=== PATIENT | male | born 1995 | race Caucasian/White ===

== ENCOUNTER 2016-06-10 10:19 | Emergency (ER) | payer BC, OTHER ==
[2016-06-10 11:19] LABS: HEMOGLOBIN 14.4 gm/dl (14.0-17.5); RED BLOOD COUNT 4.89 M/UL (4.20-5.50); WHITE BLOOD COUNT 6.7 K/UL (4.5-11.0)
[2016-06-10 11:41] LABS: BUN/CREATININE RATIO 13 (0-10)
== END 2016-06-10 13:15 | disposition home or self-care (01) ==
LOC: ER1 10:19
PROVIDERS: Emergency Medicine
DX: M79.662 Pain in left lower leg (principal); M79.661 Pain in right lower leg; I10 Essential (primary) hypertension; S80.12XA Contusion of left lower leg, initial encounter; S80.11XA Contusion of right lower leg, initial encounter; X58.XXXA Exposure to other specified factors, initial encounter; Z88.0 Allergy status to penicillin; Z88.1 Allergy status to other antibiotic agents
CPT/HCPCS: 36415; 80053; 82550; 85025; 85610; 85730; 93970; 99284